=== PATIENT | male | born 1965 | race Caucasian/White ===

== ENCOUNTER 2016-03-27 15:13 | Emergency (ER) | payer MEDICARE, MEDICAID ==
--- NOTE | 2016-03-27 16:11 | RAD ---
INDICATION: Chest pain COMPARISON: July 29, 2015 TECHNIQUE: An AP portable view obtained at 1540 hours is submitted. FINDINGS: Bones/Soft Tissues: There are no acute bony findings. Cardiomediastinal: The cardiomediastinal silhouette is normal. Lungs: There are no infiltrates. Pleura: There are no pleural effusions. Other: None IMPRESSION: NO ACTIVE DISEASE.
[2016-03-27 16:29] LABS: Hematocrit 45 % (42-52); Hemoglobin 15.1 g/dl (14.0-18.0); Mean Corpuscular HGB Conc 34 g/dl (31-36); Mean Corpuscular Hemoglobin 28 pg (27-31); Mean Corpuscular Volume 83 fL (80-94); Mean Platelet Volume 8 um3 (7.4-10.4); Red Blood Count 5.38 10^6/ul (4.0-5.4); Red Cell Distribution Width 14 % (10.5-15); White Blood Count 10.8 10^3/ul (3.5-10.8)
[2016-03-27 16:53] LABS: ALT 38 U/L (7-52); Albumin 4.1 g/dL (3.2-5.2); Alkaline Phosphatase 80 U/L (34-104); Blood Urea Nitrogen 11 mg/dL (6-24); C Reactive Protein 8.43 mg/L (< 5.00); CO2 Carbon Dioxide 26 mmol/L (22-32); Calcium 9.4 mg/dL (8.6-10.3); Chloride 102 mmol/L (101-111); Creatine Kinase 80 U/L (10-223); EGFR African American 112.9 (>60); EGFR Non-African American 87.8 (>60); Globulin 3.1 g/dL (2-4); Glucose 84 mg/dL (70-100); Lipase 26 U/L (11.0-82.0); Sodium 135 mmol/L (133-145); Total Protein 7.2 g/dL (6.4-8.9)
[2016-03-27 16:56] LABS: Urine Bilirubin Negative (Negative); Urine Glucose Negative (Negative); Urine Nitrite Negative (Negative)
[2016-03-27] MEDS ORDERED: Naproxen TAB* 250 MG PO ONE (17:10)
[2016-03-27 17:16] LABS: TSH (Thyroid Stimulating Horm) 1.03 mcIU/mL (0.34-5.60)
[2016-03-27 17:50] VITALS: BP 145/101
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
== END 2016-03-27 18:33 | disposition home or self-care (01) ==
LOC: ED 15:13
DX: R07.89 Other chest pain (principal); F32.9 Major depressive disorder, single episode, unspecified; J43.9 Emphysema, unspecified; K21.9 Gastro-esophageal reflux disease without esophagitis; M79.7 Fibromyalgia; F17.210 Nicotine dependence, cigarettes, uncomplicated; I10 Essential (primary) hypertension; I20.9 Angina pectoris, unspecified
CPT/HCPCS: 36415; 71010; 80053; 81003; 82550; 82553; 83605; 83690; 83735; 84443; 84484; 85025; 85379; 85610; 85730; 86140; 93005; 99283; A9270-GY

== ENCOUNTER 2016-05-19 15:25 | Emergency (ER) | payer MEDICARE, MEDICAID ==
[2016-05-19] MEDS ORDERED: HYDROcodone/ACETAMIN 5-325 MG* 1 TAB PO ONE (16:11)
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
[2016-05-19 17:48] VITALS: BP 138/96
== END 2016-05-19 17:46 | disposition home or self-care (01) ==
LOC: ED 15:25
DX: S96.912A Strain of unspecified muscle and tendon at ankle and foot level, left foot, initial encounter (principal); M79.672 Pain in left foot; M25.559 Pain in unspecified hip; M79.1 Myalgia; F17.210 Nicotine dependence, cigarettes, uncomplicated; X58.XXXA Exposure to other specified factors, initial encounter; Y93.9 Activity, unspecified; Y92.9 Unspecified place or not applicable
CPT/HCPCS: 99282

== ENCOUNTER 2016-06-24 04:41 | Emergency (ER) | payer MEDICARE, MEDICAID ==
[2016-06-24 04:51] VITALS: BP 149/95
[2016-06-24] MEDS ORDERED: Amoxicillin CAP* 250 MG PO ONE (05:05)
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
== END 2016-06-24 05:44 | disposition home or self-care (01) ==
LOC: ED 04:41
DX: M26.622 Arthralgia of left temporomandibular joint (principal); H66.92 Otitis media, unspecified, left ear; I10 Essential (primary) hypertension; I20.9 Angina pectoris, unspecified; F32.9 Major depressive disorder, single episode, unspecified; K21.9 Gastro-esophageal reflux disease without esophagitis; M79.7 Fibromyalgia; F17.210 Nicotine dependence, cigarettes, uncomplicated
CPT/HCPCS: 99281; A9270-GY

== ENCOUNTER 2016-08-12 04:22 | Emergency (ER) | payer MEDICARE, MEDICAID ==
[2016-08-12] MEDS ORDERED: NS 0.9% 1000 ML* 1,000 ML IV ONE (04:55)
[2016-08-12] MEDS ORDERED: HYDROmorphone* 1 MG/ML 1 ML SYR IV SLOW PU ONE (05:21)
[2016-08-12 05:26] LABS: Hematocrit 48 % (42-52); Mean Corpuscular HGB Conc 33 g/dl (31-36); Mean Corpuscular Hemoglobin 28 pg (27-31); Mean Corpuscular Volume 84 fL (80-94); Mean Platelet Volume 8 um3 (7.4-10.4); Red Blood Count 5.77 10^6/ul (4.0-5.4); Red Cell Distribution Width 14 % (10.5-15); White Blood Count 8.8 10^3/ul (3.5-10.8)
[2016-08-12 05:39] LABS: ALT 41 U/L (7-52); Albumin 4.3 g/dL (3.2-5.2); Alkaline Phosphatase 89 U/L (34-104); BUN/Creatinine Ratio 24.7 (8-20); Blood Urea Nitrogen 22 mg/dL (6-24); CO2 Carbon Dioxide 26 mmol/L (22-32); Calcium 9.3 mg/dL (8.6-10.3); Chloride 102 mmol/L (101-111); EGFR African American 117.3 (>60); EGFR Non-African American 91.2 (>60); Globulin 3.2 g/dL (2-4); Glucose 110 mg/dL (70-100); Sodium 135 mmol/L (133-145); Total Protein 7.5 g/dL (6.4-8.9)
[2016-08-12 05:40] LABS: Anion Gap 7 mmol/L (2-11); Potassium 4.1 mmol/L (3.5-5.0)
[2016-08-12 05:41] LABS: AST 22 U/L (13-39)
[2016-08-12 05:42] LABS: Alcohol < 10 mg/dL (<10)
--- NOTE | 2016-08-12 06:13 | ED ---
Fredrick Valdez Rebecca, scribed for Dez Colon MD on 08/12/16 at 0444 . Adult Trauma - HPI Summary HPI Summary: Pt is a 50 y/o M BIBA who presents to ED s/p mechanical fall c/o L shoulder and forehead pain (secondary to abrasion). Pain is currently severe ranked 9/10 and characterized as sharp. Pain began immediately after fall and has been constant since onset. Sx aggravated and alleviated by nothing. Additionally c/o R anterior CP and nausea. Denies SOB, [place] and neck, hip, back, LE and abdominal pain. While in the bathroom at 0400, pt suddenly experienced unwitnessed LOC. is unsure exactly how long episode lasted for, stating that he was in the bathroom for about 10 minutes before she heard him calling for help. States that the bathroom is pretty tight, so there is a possibility that he hit various furniture during the LOC. Is not on blood thinners. Last tetanus shot 1 year ago. PMHx MS. - History of Current Complaint Chief Complaint: EDGeneral Stated Complaint: FALL//HEAD LAC Time Seen by Provider: 08/12/16 04:42 Hx Obtained From: Patient Mechanism of Injury: Fall - Mechanical fall Loss of Consciousness: prolonged (minutes) Onset of Pain: Immediate, Prior to Arrival Onset Severity: Severe Current Severity: Severe Pain Intensity: 9 Pain Scale Used: 0-10 Numeric Location: Head - forehead (location of abrasion), Chest - right anterior chest, Extremities - L shoulder Character: Sharp Aggravating Factor(s): Nothing Alleviating Factor(s): Nothing Associated Signs & Symptoms: Positive: Fever. Negative: Abdominal Pain - Allergy/Home Medications Allergies/Adverse Reactions: Allergies Allergy/AdvReac Type Severity Reaction Status Date / Time No Known Allergies Allergy Verified 08/12/16 04:30 PMH/Surg Hx/FS Hx/Imm Hx Endocrine/Hematology History: Denies: Hx Diabetes Cardiovascular History: Reports: Hx Angina, Hx Hypertension - CONTROL WITH MEDS Denies: Hx Pacemaker/ICD Respiratory History: Reports: Hx Chronic Obstructive Pulmonary Disease (COPD), Hx Sleep Apnea, Other Respiratory Problems/Disorders - LUNG NODULES(PREVIOUS NOTED) GI History: Reports: Hx Gastroesophageal Reflux Disease History: Reports: Other Problems/Disorders - STATED HEMATURIA Denies: Hx Renal Disease Musculoskeletal History: Reports: Hx Fibromyalgia Sensory History: Reports: Hx Cataracts - BEGINNING BILATERAL Denies: Hx Contacts or Glasses, Hx Hearing Aid Opthamlomology History: Reports: Hx Cataracts - BEGINNING BILATERAL Denies: Hx Contacts or Glasses Neurological History: Reports: Other Neuro Impairments/Disorders - MS - SHAKING , WEAKNESS, NUMBNESS, TINGLING Psychiatric History: Reports: Hx Depression - CONTROL WITH MEDS, Hx of Violent Episodes Against Others Denies: Hx Panic Disorder - Surgical History Surgery Procedure, Year, and Place: AISHA CARPAL TUNNEL Hx Anesthesia Reactions: No Infectious Disease History: No Infectious Disease History: Denies: Traveled Outside the [place] in Last 30 Days - Family History Known Family History: Positive: Cardiac Disease Negative: Diabetes - Social History Alcohol Use: None Hx Substance Use: No Substance Use Type: Reports: None Substance Use Comment - Amount & Last Used: Pt denies Hx Tobacco Use: Yes Smoking Status (MU): Current Every Day Smoker Type: Cigarettes Amount Used/How Often: 1/2 PPD FOR ABOUT 35 YEARS Length of Time of Smoking/Using Tobacco: 35 YEARS Have You Smoked in the Last Year: Yes Review of Systems Positive: Chest Pain - right anterior chest pain Negative: Abdominal Pain Positive: Arthralgia - L shoulder pain; Denies neck, back, hip and LE pain Positive: Other - forehead pain secondary to abrasion Negative: Headache All Other Systems Reviewed And Are Negative: Yes Physical Exam - Summary Physical Exam Summary: The patient is well-nourished in no acute distress and in no acute pain. The skin is warm and dry and skin color reflects adequate perfusion. HEENT: [place] an abrasion on the forehead. The pupils are equal and reactive. The conjunctivae are clear and without drainage. Nares are patent and without drainage. Mouth reveals moist mucous membranes and the throat is without erythema and exudate. The external ears are intact. Neck is supple with full range of motion and non-tender. There are no carotid bruits. There is no neck vein distension. No step off on the neck. Respiratory: Lungs are clear to auscultation and breath sounds are symmetrical and equal. Tenderness over the right anterior chest wall with radiation into ribs Cardiovascular: Hear is regular rate and rhythm. There is no murmur or rub auscultated. There is no peripheral edema. Weak pulses. Abdomen: The abdomen is soft and non-tender. There are normal bowel sounds heard in all four quadrants and there is no organomegaly palpated. Musculoskeletal: There is no back pain noted with no reproducible back pain. There is good capillary refill. There is no peripheral edema or calf tenderness elicited. Tenderness over the proximal left shoulder/arm area. No pain listed in LE. Neurological: Patient is alert and oriented to person, place and time. The patient has symmetrical motor strength in all four extremities. Distally good neurovascular from the arm down. The right arm is unaffected. Psychiatric: The patient is lethargic. Triage Information Reviewed: Yes Vital Signs On Initial Exam: Initial Vitals Temp Pulse Resp BP Pulse Ox 97.7 F 100 16 147/95 98 08/12/16 04:25 08/12/16 04:25 08/12/16 04:25 08/12/16 04:25 08/12/16 04:25 Vital Signs Reviewed: Yes Diagnostics - Vital Signs Vital Signs Temp Pulse Resp BP Pulse Ox 08/12/16 04:33 98 F 100 16 147/95 98 08/12/16 04:25 97.7 F 100 16 147/95 98 - Laboratory Lab Results: Lab Results 08/12/16 08/12/16 08/12/16 Range/Units 05:10 05:10 05:10 WBC 8.8 (3.5-10.8) 10^3/ul RBC 5.77 H (4.0-5.4) 10^6/ul Hgb 16.0 (14.0-18.0) g/dl Hct 48 (42-52) % MCV 84 (80-94) fL MCH 28 (27-31) pg MCHC 33 (31-36) g/dl RDW 14 (10.5-15) % Plt Count 263 (150-450) 10^3/ul MPV 8 (7.4-10.4) um3 Neut % (Auto) 49.6 (38-83) % Lymph % (Auto) 38.6 (25-47) % [place] % (Auto) 9.6 H (1-9) % Eos % (Auto) 0.9 (0-6) % Baso % (Auto) 1.3 (0-2) % Absolute Neuts (auto) 4.4 (1.5-7.7) 10^3/ul Absolute Lymphs (auto) 3.4 (1.0-4.8) 10^3/ul Absolute Monos (auto) 0.8 (0-0.8) 10^3/ul Absolute Eos (auto) 0.1 (0-0.6) 10^3/ul Absolute Basos (auto) 0.1 (0-0.2) 10^3/ul Absolute Nucleated RBC 0 10^3/ul Nucleated RBC % 0 Sodium 135 (133-145) mmol/L Potassium 4.1 (3.5-5.0) mmol/L Chloride 102 (101-111) mmol/L Carbon Dioxide 26 (22-32) mmol/L Anion Gap 7 (2-11) mmol/L BUN 22 (6-24) mg/dL Creatinine 0.89 (0.67-1.17) mg/dL Est GFR ( Amer) 117.3 (>60) Est GFR (Non-Af Amer) 91.2 (>60) BUN/Creatinine Ratio 24.7 H (8-20) Glucose 110 H (70-100) mg/dL Lactic Acid 1.1 (0.5-2.0) mmol/L Calcium 9.3 (8.6-10.3) mg/dL Total Bilirubin 0.30 (0.2-1.0) mg/dL AST 22 (13-39) U/L ALT 41 (7-52) U/L Alkaline Phosphatase 89 (34-104) U/L Troponin I 0.00 (<0.04) ng/mL Total Protein 7.5 (6.4-8.9) g/dL Albumin 4.3 (3.2-5.2) g/dL Globulin 3.2 (2-4) g/dL Albumin/Globulin Ratio 1.3 (1-3) Serum Alcohol < 10 (<10) mg/dL Result Diagrams: 08/12/16 05:10 08/12/16 05:10 Lab Statement: Any lab studies that have been ordered have been reviewed, and results considered in the medical decision making process. - Radiology Shoulder XR Xray Interpretation: No Acute Changes - No fracture, no distal casing. Calcified tendonitis. Radiology Interpretation Completed By: ED Physician CXR Xray Interpretation: No Acute Changes - No rib fractures, no bruising, no contusion Radiology Interpretation Completed By: ED Physician - CT Brain CT CT Interpretation: No Acute Changes - There is no CT evidence of acute territorial infarction. Patchy periventricular and subcortical white matter hypoattenuations seen. These are nonspecific and can be seen in the setting of chronic microvascular ischemic changes. Intracranical calcifications noted. There is no acute intracranial hemorrhage, mass effect of cerebral edema identified. The ventricles are unremarkable. Basilar cisterns are patent. No abnormal intra-axial or extra-axial fluid collection is seen. The bones of the calvarium and imaged skull base demonstrate no acute abnormality. The imaged paranasal sinuses and mastoid air cells are unremarkable. CT Interpretation Completed By: Radiologist C-Spine CT CT Interpretation: No Acute Changes CT Interpretation Completed By: Radiologist - EKG 0505 Cardiac Rate: NL - 99 bpm EKG Rhythm: Sinus Rhythm EKG Interpretation: normal axis, no STEMI Re-Evaluation - Re-Evaluation First Eval Re-Evaluation Time: 05:18 Change: Unchanged Comment: Evaluated abrasion on the forehead. It is a 2 cm abrasion on his forehead that is superficial and does not need any stitches. Second Eval Re-Evaluation Time: 06:04 Change: Improved Comment: Discussed XR and CT results with pt and his . Advised in what to look for as warning signs of head trauma. Pt is sitting comfortably, ready to be D/C to home. Adult Trauma Course/Dx - Course Assessment/Plan: Pt is a 50 y/o M BIBA who presents to ED s/p mechanical fall c/ o severe L shoulder and forehead pain (secondary to abrasion) that began immediately after fall. Additionally c/o R anterior CP and nausea. Denies SOB, [place] and neck, hip, back, LE and abdominal pain. While in the bathroom at 0400, pt suddenly experienced unwitnessed LOC. is unsure exactly how long episode lasted for, stating that he was in the bathroom for about 10 minutes before she heard him calling for help. Is not on blood thinners. Last tetanus shot 1 year ago. EKG, Shoulder XR, CXR, C-Spine CT and Brain CT reveal no acute findings. Pt administered Dilaudid and Ns IV in the course of the ED. Pt will be D/C to home with Dx of contusion, concussion, contusion to L shoulder, contusion to R chest wall and forehead abrasion. - Diagnoses Differential Diagnosis/HQI/PQRI: Positive: Fracture, Dislocation, Other - closed head injury, laceration, concussion, abrasion Provider Diagnoses: Concussion, Contusion, Forehead abrasion, Contusion of left shoulder, Contusion of right chest wall Discharge - Discharge Plan Condition: Stable Disposition: HOME Patient Education Materials: Contusion in Adults (ED), Concussion (ED), Abrasion (ED) Referrals: George Brooke MD [Primary Care Provider] - 3 Days The documentation as recorded by the Fredrick ramos Rebecca accurately reflects the service I personally performed and the decisions made by , Dez Colon MD.
[2016-08-12 06:31] VITALS: BP 134/68
--- NOTE | 2016-08-12 09:05 | RAD ---
INDICATION: Fell and hit head. History of multiple sclerosis. COMPARISON: December 02, 2015 MRI. Technique: Noncontrast CT vertex of skull through foramen magnum. Report: The sulci, ventricles, and basal cisterns are normal for age. [place] matter white matter differentiation is preserved without evidence for edema. No intra or extra axial hemorrhage, mass, or fluid collection detected. Unremarkable visualized orbital contents. Unremarkable calvarium and skull base. Unremarkable scalp. The visualized paranasal sinuses and mastoid air spaces are clear. IMPRESSION: No evidence for traumatic brain injury or other acute intracranial process. Negative unenhanced head CT.
--- NOTE | 2016-08-12 09:09 | RAD ---
INDICATION: Fell and struck head. COMPARISON: December 02, 2015 MRI. TECHNIQUE: Multidetector CT images foramen magnum to lung apices without contrast. Multiplanar reformation. REPORT: Normal vertebral alignment accounting for exam positioning without spondylolisthesis or subluxation at any level. Negative for cervical vertebral body or posterior element fracture. Negative for paravertebral hematoma. Minimal C5-C6 and mild C6-C7 and C7-T1 degenerative spondylosis. Negative for acquired spinal stenosis. IMPRESSION: No evidence for traumatic cervical spine injury.
--- NOTE | 2016-08-12 09:15 | RAD ---
INDICATION: RIGHT side chest pain following injury. Assess for fracture. COMPARISON: May 09, 2016 CT. TECHNIQUE: Dual energy PA and routine lateral views of the chest were obtained. REPORT: Clear lungs and pleural spaces. Negative for pneumothorax. The heart, pulmonary vasculature, and mediastinal contours are unremarkable. Negative for free air beneath the diaphragm. No visualized rib fracture. Unremarkable osseous structures. IMPRESSION: No traumatic thoracic injury evident.
--- NOTE | 2016-08-12 09:17 | RAD ---
Indication: LEFT shoulder pain post fall. Comparison: No relevant prior exams available on the [facility] PACS for comparison. Technique: Internal and external rotation AP and scapular Y views LEFT shoulder Report: Normal acromioclavicular and glenohumeral joint alignment. Negative for fracture. Minimal osteophytosis/osteoarthritis at the acromioclavicular joint. Negative for stigmata of calcific tendinopathy. Unremarkable soft tissue contours. IMPRESSION: No traumatic injury evident.
== END 2016-08-12 06:31 | disposition home or self-care (01) ==
LOC: ED 04:22
DX: S06.0X1A Concussion with loss of consciousness of 30 minutes or less, initial encounter (principal); S40.012A Contusion of left shoulder, initial encounter; S20.211A Contusion of right front wall of thorax, initial encounter; S00.81XA Abrasion of other part of head, initial encounter; W19.XXXA Unspecified fall, initial encounter; Y93.9 Activity, unspecified; Y92.9 Unspecified place or not applicable; R07.89 Other chest pain; R11.0 Nausea; I20.9 Angina pectoris, unspecified; I10 Essential (primary) hypertension; J44.9 Chronic obstructive pulmonary disease, unspecified; K21.9 Gastro-esophageal reflux disease without esophagitis; R31.9 Hematuria, unspecified; M79.7 Fibromyalgia; F17.210 Nicotine dependence, cigarettes, uncomplicated; M47.812 Spondylosis without myelopathy or radiculopathy, cervical region
CPT/HCPCS: 36415; 70450; 71020; 72125; 80053; 80320; 83605; 84484; 85025; 93005; 96374; 99282; G0480; J1170